=== PATIENT | female | born 1960 | race Caucasian/White ===

== ENCOUNTER 2018-11-03 11:57 | Outpatient (REF) | payer OTHER, SELFPAY ==
--- NOTE | 2018-11-03 10:45 | PAPFT_PTH ---
PATIENT: Leydi Rodriguez [facility] U[facility][id number] AGE/SX: 58/F ROOM: RE11/03/[address]: Carrie Soto : 1960 BED: DIS: 11/03/2018 SPEC #: [id number]: RECD: 11/03/18 17:49 STATUS: DOTTY REQ #: [id number] HOWARD: 11/03/18 10:[address]: Carrie Soto DEPT: [facility] Cytology RECD BY: Katina Zee ENTERED: 11/03/18 17:49 SP TYPE: PAPFT OTHR DR: Alisa Bentley Tissues: 1 - CX/ENDOCX FOR PAP SMEARS Procedures: PAP THIN PREP/[facility] Screening HPV DNA PROBE Comments: [id number]
== END 2018-11-03 12:17 ==
LOC: NCHCN 11:57
PROVIDERS: PCP Nurse Practitioner Family; Visit Provider Family Medicine
DX: Z12.4 Encounter for screening for malignant neoplasm of cervix (principal); Z11.51 Encounter for screening for human papillomavirus (HPV); Z00.00 Encounter for general adult medical examination without abnormal findings
CPT/HCPCS: 88142; 87624

== ENCOUNTER 2019-05-20 08:13 | Outpatient (CLI) | payer OTHER, SELFPAY ==
[2019-05-20 08:49] LABS: Bilirubin Negative (Negative); Blood Small (Negative); Clarity Sl Cloudy (Clear); Glucose Negative (Negative); Ketones Negative (Negative); Leukocyte Esterase Small (Negative); Nitrite Negative (Negative); Specific Gravity <= 1.005 (1.005-1.025); Urobilinogen 0.2 EU/dL (Up TO 0.2)
[2019-05-20 09:03] LABS: Bacteria Few HPF (Negative); C & S Indicated? Yes; Casts Negative LPF (Negative); Crystals Negative HPF (Negative); Mucus Negative (Negative); Other Cells Few Transitional (Negative); WBC >50 HPF (0-5)
[2019-05-20 11:56] LABS: Epithelial Cells Negative HPF (Negative)
== END 2019-05-20 08:33 ==
PROVIDERS: PCP Family Medicine
DX: N39.0 Urinary tract infection, site not specified (principal)
CPT/HCPCS: 81003; 81015; 87086

== ENCOUNTER 2019-11-05 11:17 | Outpatient (REF) | payer OTHER, SELFPAY ==
[2019-11-05 15:04] LABS: Anion Gap 9.1 mmol/L (3-11); BUN 12 mg/dL (7-18); CO2 29.9 mmol/L (21.0-32.0); CREATININE 0.82 mg/dL (0.55-1.02); Calcium 9.4 mg/dL (8.5-10.1); Calculated LDL 144 mg/dL; Chloride 103 mmol/L (98-107); Cholesterol 220 mg/dL (<200); Glucose 87 mg/dL (74-106); HDL Cholesterol 49 mg/dL (40-60); Potassium 4.1 mmol/L (3.5-5.1); Sodium 142 mmol/L (136-145); Triglyceride 136 mg/dL (<150)
== END 2019-11-05 11:37 ==
LOC: NCHCN 11:17
PROVIDERS: PCP Family Medicine; Visit Provider Family Medicine
DX: Z00.00 Encounter for general adult medical examination without abnormal findings (principal); Z13.220 Encounter for screening for lipoid disorders; Z13.228 Encounter for screening for other metabolic disorders
CPT/HCPCS: 80048; 80061

== ENCOUNTER 2023-08-01 10:48 | Outpatient (REF) | payer OTHER, SELFPAY ==
[2023-08-01 21:14] LABS: Hemoglobin A1C 5.6 % (<5.7)
[2023-08-01 21:18] LABS: Calculated LDL 115 mg/dL (<100); Cholesterol 206 mg/dL (<200); HDL Cholesterol 46 mg/dL (40-60); Triglyceride 226 mg/dL (<150)
== END 2023-08-01 10:49 | disposition home or self-care (01) ==
LOC: NCHCN 10:48
PROVIDERS: PCP Family Medicine; Visit Provider Family Medicine
DX: Z13.1 Encounter for screening for diabetes mellitus (principal); Z13.220 Encounter for screening for lipoid disorders
CPT/HCPCS: 80061; 83036